=== PATIENT | male | born 1965 | race Caucasian/White ===

== ENCOUNTER 2021-06-27 15:50 | Inpatient (IN) | payer OTHER ==
[~2021-06-27 15:50] MED LIST: Iopamidol 370 76% 100 ML VIAL ONE
[2021-06-27 16:28] LABS: Hemoglobin 14.6 g/dL (13.5-17.5); Mean Corpuscular Hemoglobin 31.2 pg (27.0-33.0); Mean Corpuscular Volume 89.1 fl (81.2-95.1); Mean Platelet Volume 10.1 fl (7.4-10.4); Platelet Count 203 10x3/uL (150-450); RBC Distribution Width 13.2 % (11.5-14.5); Red Blood Cell (RBC) Count 4.68 10x6/uL (4.32-5.72)
[2021-06-27 16:35] LABS: ALT (SGPT) 19 U/L (8-55); AST (SGOT) 30 U/L (5-34); Albumin 3.3 g/dL (3.5-5.0); Alkaline Phosphatase 52 U/L (40-110); Anion Gap 16 mmol/L (10-20); BUN (Urea Nitrogen) 28 mg/dL (8.4-25.7); Bilirubin, Total 0.5 mg/dL (0.2-1.2); Calc. Creatinine Clearance 0 mL/min (70-130); Calcium 8.4 mg/dL (7.8-10.44); Carbon Dioxide 26 mmol/L (22-29); Chloride 86 mmol/L (98-107); Globulin 2.3 g/dL (2.4-3.5); Glucose 96 mg/dL (70-105); Lipase 4 U/L (8-78); Magnesium 1.9 mg/dL (1.6-2.6); Potassium 3.7 mmol/L (3.5-5.1); Protein, Total 5.6 g/dL (6.0-8.3); Sodium 124 mmol/L (136-145)
[2021-06-27] MEDS ORDERED: cefTRIAXone\\ROCEPHIN 2 GM VIAL ONE (16:40)
[2021-06-27] MEDS ORDERED: Azithromycin 500 MG VIAL ONE (16:40)
[2021-06-27 16:58] LABS: CKMB 2.9 ng/mL (0-6.6)
[2021-06-27 17:01] LABS: Eosinophils 1 % (0-10); Lymphocytes 4 % (21-51); Monocytes 5 % (0-10); Myelocyte 1 % (0-0)
[2021-06-27 17:02] LABS: Band 2 % (5-11); MDiff Complete? YES; Neutrophil 87 % (42-75)
[2021-06-27 17:03] LABS: Large Platelets SLIGHT; Platelet Morphology Comment Appears Adequate; RBC Morphology Normal; Vacuoles SLIGHT
[2021-06-27] MEDS ORDERED: Ondansetron PF 4 MG/2 ML Vial ONE (17:28)
[2021-06-27] MEDS ORDERED: Sodium Chloride 0.9% 1,000 ML IV SCH ×2 (18:30→20:15)
[2021-06-27] MEDS ORDERED: cefTRIAXone\\ROCEPHIN 1 GM in Sodium Chloride 0.9% 100 ML IVPB SCH (18:30)
[2021-06-27 18:50] LABS: SARS-CoV-2 NAA Rapid Test Not Detected (NotDetected)
[2021-06-27 19:16] LABS: Anion Gap 14 mmol/L (10-20); BUN (Urea Nitrogen) 26 mg/dL (8.4-25.7); Calc. Creatinine Clearance 0 mL/min (70-130); Calcium 8.4 mg/dL (7.8-10.44); Carbon Dioxide 24 mmol/L (22-29); Chloride 90 mmol/L (98-107); Glucose 84 mg/dL (70-105); Potassium 3.1 mmol/L (3.5-5.1); Sodium 125 mmol/L (136-145)
[2021-06-27 19:26] LABS: Troponin I 0.029 ng/mL (< 0.028)
[2021-06-27] MEDS: Acetaminophen 325 MG TAB PO PRN (20:43)
[2021-06-27] MEDS: Benzonatate 100 MG CAP PO PRN (20:45)
[2021-06-27] MEDS: Potassium Chloride 20 MEQ TAB PO SCH (20:46)
[2021-06-27] MEDS ORDERED: Metoprolol Tartrate 50 MG TAB PO SCH (21:00)
[2021-06-27 23:11] LABS: Troponin I 0.028 ng/mL (< 0.028)
[2021-06-27 23:53] LABS: Strep pneumo Urine Ag NEGATIVE (NEGATIVE)
[2021-06-27 23:54] LABS: Legionella Urinary Ag Negative (Negative)
[2021-06-28] MEDS: Potassium Chloride 20 MEQ TAB PO SCH (00:25)
[2021-06-28] MEDS: Acetaminophen 325 MG TAB PO PRN ×2 (01:09→20:07)
[2021-06-28] MEDS: Benzonatate 100 MG CAP PO PRN (04:48)
[2021-06-28 05:30] LABS: Hemoglobin 13.7 g/dL (13.5-17.5); Mean Corpuscular Hemoglobin 31.8 pg (27.0-33.0); Mean Corpuscular Volume 90.7 fl (81.2-95.1); Mean Platelet Volume 10.2 fl (7.4-10.4); Platelet Count 214 10x3/uL (150-450); RBC Distribution Width 13.6 % (11.5-14.5); Red Blood Cell (RBC) Count 4.31 10x6/uL (4.32-5.72); White Blood Cell (WBC) Count 22.5 10x3/uL (3.5-10.5)
[2021-06-28 05:39] LABS: MDiff Complete? YES; Manual Diff?? YES
[2021-06-28 05:49] LABS: Anion Gap 14 mmol/L (10-20); BUN (Urea Nitrogen) 20 mg/dL (8.4-25.7); Calc. Creatinine Clearance 142 mL/min (70-130); Calcium 8.2 mg/dL (7.8-10.44); Carbon Dioxide 23 mmol/L (22-29); Chloride 97 mmol/L (98-107); Glucose 86 mg/dL (70-105); Sodium 130 mmol/L (136-145)
[2021-06-28 06:00] LABS: Band 17 % (5-11); Lymphocytes 3 % (21-51); Metamyelocyte 1 % (0-0); Monocytes 9 % (0-10); Myelocyte 1 % (0-0); Neutrophil 63 % (42-75); Platelet Morphology Comment Appears Adequate; Reactive Lymphocytes 3 % (0-10)
[2021-06-28 06:01] LABS: Dohle Bodies SLIGHT; Toxic Granulation SLIGHT; Vacuoles SLIGHT
[2021-06-28] MEDS ORDERED: Senokot S 8.6-50 MG TAB PO PRN (07:33)
[2021-06-28] MEDS ORDERED: Artificial Tear Sol 15 ML BOT EA EYE PRN (07:33)
[2021-06-28] MEDS ORDERED: HYDROcodone/Acetaminophen 5/325 mg Tablet PO PRN (07:33)
[2021-06-28] MEDS ORDERED: Ondansetron PF 4 MG/2 ML Vial IVP PRN (07:33)
[2021-06-28] MEDS ORDERED: Cepastat Lozenges 1 LOZ PO PRN (07:33)
[2021-06-28] MEDS ORDERED: Loratadine 10 MG TAB PO PRN (07:33)
[2021-06-28] MEDS ORDERED: hydrALAZINE 20 MG/ML VIAL SLOW IVP PRN (07:33)
[2021-06-28] MEDS ORDERED: Calcium Carbonate 500 MG ChewTAB PO PRN (07:33)
[2021-06-28] MEDS ORDERED: Loperamide HCl 2 MG CAP PO PRN (07:33)
[2021-06-28] MEDS ORDERED: Moisturizing Cream (Eucerin) 113 GM JAR TOP PRN (07:33)
[2021-06-28] MEDS ORDERED: Thyroid 60 MG TAB PO SCH (09:00)
[2021-06-28] MEDS ORDERED: Losartan 25 MG TAB PO SCH (09:00)
[2021-06-28] MEDS ORDERED: Enoxaparin Sodium 40 MG/0.4 ML SYRINGE SC SCH (09:00)
[2021-06-28] MEDS: Metoprolol Tartrate 50 MG TAB PO SCH ×2 (09:26→20:07)
[2021-06-28] MEDS: GUAIFENESIN SF SOLN 200 MG/10 ML UDCUP PO PRN ×2 (14:55→20:07)
[2021-06-28] MEDS: Azithromycin 500 MG in Sodium Chloride 0.9% 250 ML 250 ML IVPB SCH (18:34)
[2021-06-28] MEDS ORDERED: GUAIFENESIN SF SOLN 200 MG/10 ML UDCUP ONE (19:56)
[2021-06-28] MEDS: cefTRIAXone\\ROCEPHIN 1 GM in Sodium Chloride 0.9% 100 ML IVPB SCH (20:08)
[2021-06-28] MEDS ORDERED: Melatonin 3 MG TAB PO PRN (21:00)
[2021-06-29 04:38] LABS: Hemoglobin 10.7 g/dL (13.5-17.5); MDiff Complete? YES; Manual Diff?? YES; Mean Corpuscular HGB CONC 35.1 g/dL (32.0-36.0); Mean Corpuscular Volume 91.3 fl (81.2-95.1); Mean Platelet Volume 10.1 fl (7.4-10.4); Platelet Count 197 10x3/uL (150-450); RBC Distribution Width 14.1 % (11.5-14.5); Red Blood Cell (RBC) Count 3.34 10x6/uL (4.32-5.72); White Blood Cell (WBC) Count 18.1 10x3/uL (3.5-10.5)
[2021-06-29] MEDS ORDERED: Pantoprazole 40 MG VIAL IVP SCH ×2 (05:00→18:00)
[2021-06-29] MEDS ORDERED: Lactated Ringer's 1,000 ML IV SCH (05:00)
[2021-06-29 05:04] LABS: ALT (SGPT) 34 U/L (8-55); AST (SGOT) 38 U/L (5-34); Albumin 2.6 g/dL (3.5-5.0); Alkaline Phosphatase 39 U/L (40-110); Bilirubin, Direct 0.2 mg/dL (0.1-0.3); Bilirubin, Total 0.4 mg/dL (0.2-1.2); CRP (Inflammatory) 10.13 mg/dL (= or < 0.5); Phosphorus 2.3 mg/dL (2.3-4.7); Protein, Total 4.7 g/dL (6.0-8.3)
[2021-06-29 05:07] LABS: Anion Gap 12 mmol/L (10-20); BUN (Urea Nitrogen) 15 mg/dL (8.4-25.7); Calc. Creatinine Clearance 156 mL/min (70-130); Calcium 8.1 mg/dL (7.8-10.44); Carbon Dioxide 26 mmol/L (22-29); Chloride 98 mmol/L (98-107); Glucose 98 mg/dL (70-105); Magnesium 1.9 mg/dL (1.6-2.6); Potassium 3.9 mmol/L (3.5-5.1); Sodium 132 mmol/L (136-145)
[2021-06-29 05:10] LABS: Band 5 % (5-11); Eosinophils 2 % (0-10); Lymphocytes 6 % (21-51); Metamyelocyte 4 % (0-0); Monocytes 12 % (0-10); Myelocyte 4 % (0-0); Neutrophil 62 % (42-75); Reactive Lymphocytes 4 % (0-10)
[2021-06-29 05:11] LABS: Platelet Morphology Comment Appears Adequate
[2021-06-29 05:13] LABS: Anisocytosis SLIGHT = 6-15 cells (100X) (0-5/hpf); Toxic Granulation SLIGHT; Vacuoles SLIGHT
[2021-06-29] MEDS ORDERED: Potassium Chloride 20 MEQ in Premix Bag 1 BAG IVPB SCH ×2 (05:30→06:30)
[2021-06-29 06:00] LABS: PTT 30.8 sec (22.0-33.0); Prothrombin Time 10.9 sec (9.5-12.1)
[2021-06-29] MEDS: Pantoprazole 80 MG, Admixture Fee 1 EACH in Sodium Chloride 0.9% 100 ML IVPB SCH ×2 (06:11→14:45)
[2021-06-29] MEDS: Lactated Ringer's 1,000 ML IV SCH ×3 (07:34→20:30)
[2021-06-29 08:06] LABS: Hemoglobin 8.2 g/dL (13.5-17.5); Platelet Count 162 10x3/uL (150-450)
[2021-06-29] MEDS ORDERED: Lidocaine 1% PF 5 ML VIAL ONE (10:22)
[2021-06-29] MEDS ORDERED: Midazolam HCl 2 mg/2 ml Vial ONE (10:22)
[2021-06-29] MEDS ORDERED: Dexamethasone 4 mg/ml Vial ONE (10:22)
[2021-06-29] MEDS ORDERED: Ondansetron PF 4 MG/2 ML Vial ONE (10:22)
[2021-06-29] MEDS ORDERED: Succinylcholine 200 MG/10 ml SYRINGE FS ONE (10:23)
[2021-06-29] MEDS ORDERED: Ketamine 50 MG/ML (10ML VIAL) ONE (10:39)
[2021-06-29] MEDS ORDERED: HYDROmorphone 0.5 MG/0.5 ML SYRINGE SLOW IVP SCH (10:45)
[2021-06-29] MEDS ORDERED: PHENYLEPHRINE-NS 100 MCG/ML 10 ML SYRINGE ONE ×2 (12:10→12:20)
[2021-06-29] MEDS ORDERED: EPINEPHrine 1 MG/10 ML Abboject SYRINGE ONE (12:14)
[2021-06-29] MEDS ORDERED: Iopamidol 300 61% 100 ML VIAL FS ONE (12:21)
[2021-06-29] MEDS ORDERED: Rocuronium Bromide 10 MG/ML (10ML VIAL) ONE (12:24)
[2021-06-29] MEDS ORDERED: SUGAMMADEX SODIUM 200 MG/2 ML VIAL ONE (12:32)
[2021-06-29] MEDS: Azithromycin 500 MG in Sodium Chloride 0.9% 250 ML 250 ML IVPB SCH (16:23)
[2021-06-29 18:09] LABS: Hemoglobin 8.2 g/dL (13.5-17.5)
[2021-06-29] MEDS: cefTRIAXone\\ROCEPHIN 1 GM in Sodium Chloride 0.9% 100 ML IVPB SCH (20:30)
[2021-06-29] MEDS ORDERED: Labetalol HCl 100 MG/20 ML VIAL SLOW IVP PRN (20:54)
[2021-06-29] MEDS: Metoprolol Tartrate 25 MG TAB PO SCH (21:21)
[2021-06-29] MEDS ORDERED: Guaifenesin DM 100-10/5 ML UDCUP PO PRN (22:29)
[2021-06-29] MEDS ORDERED: diphenhydrAMINE 12.5 MG/5 ML UDCUP PO SCH (22:30)
[2021-06-30] MEDS: Pantoprazole 80 MG, Admixture Fee 1 EACH in Sodium Chloride 0.9% 100 ML IVPB SCH (01:18)
[2021-06-30] MEDS: Lactated Ringer's 1,000 ML IV SCH ×2 (01:18→09:23)
[2021-06-30] MEDS: Metoprolol Tartrate 25 MG TAB PO SCH ×2 (02:48→07:57)
[2021-06-30 03:27] LABS: Hemoglobin 7.5 g/dL (13.5-17.5); Mean Corpuscular HGB CONC 34.1 g/dL (32.0-36.0); Mean Corpuscular Hemoglobin 31.9 pg (27.0-33.0); Mean Corpuscular Volume 93.6 fl (81.2-95.1); Mean Platelet Volume 10.3 fl (7.4-10.4); Platelet Count 181 10x3/uL (150-450); RBC Distribution Width 14.8 % (11.5-14.5); Red Blood Cell (RBC) Count 2.35 10x6/uL (4.32-5.72); White Blood Cell (WBC) Count 18.7 10x3/uL (3.5-10.5)
[2021-06-30 03:28] LABS: MDiff Complete? YES; Manual Diff?? YES
[2021-06-30 03:49] LABS: ALT (SGPT) 27 U/L (8-55); AST (SGOT) 26 U/L (5-34); Albumin 2.3 g/dL (3.5-5.0); Alkaline Phosphatase 25 U/L (40-110); Anion Gap 12 mmol/L (10-20); BUN (Urea Nitrogen) 13 mg/dL (8.4-25.7); Bilirubin, Total 0.3 mg/dL (0.2-1.2); Calc. Creatinine Clearance 154 mL/min (70-130); Calcium 7.4 mg/dL (7.8-10.44); Carbon Dioxide 25 mmol/L (22-29); Chloride 102 mmol/L (98-107); Globulin 1.7 g/dL (2.4-3.5); Glucose 119 mg/dL (70-105); Sodium 135 mmol/L (136-145)
[2021-06-30 03:55] LABS: Band 8 % (5-11); Lymphocytes 12 % (21-51); Metamyelocyte 7 % (0-0); Monocytes 9 % (0-10); Myelocyte 4 % (0-0); Neutrophil 58 % (42-75)
[2021-06-30 03:56] LABS: Platelet Morphology Comment Appears Adequate
[2021-06-30 03:57] LABS: Anisocytosis SLIGHT = 6-15 cells (100X) (0-5/hpf); Dohle Bodies SLIGHT; Toxic Granulation SLIGHT; Vacuoles SLIGHT
[2021-06-30 03:58] LABS: Hypochromia SLIGHT = 6-15 cells (100X) (0-5/hpf); Macrocytosis SLIGHT = 6-15 cells (100X) (0-5/hpf); Microcytosis SLIGHT = 6-15 cells (100X) (0-5/hpf); Polychromasia SLIGHT = 2-3 cells (100X) (0-2/hpf)
[2021-06-30] MEDS: metroNIDAZOLE 500 MG TAB PO SCH ×3 (08:01→21:21)
[2021-06-30] MEDS ORDERED: HYDROcodone/Acetaminophen 5/325 mg Tablet PO PRN (10:30)
[2021-06-30] MEDS ORDERED: Calcium Carbonate 500 MG ChewTAB PO PRN (10:30)
[2021-06-30] MEDS ORDERED: Ondansetron PF 4 MG/2 ML Vial IVP PRN (10:30)
[2021-06-30] MEDS ORDERED: Senokot S 8.6-50 MG TAB PO PRN (10:30)
[2021-06-30] MEDS ORDERED: Zolpidem Tartrate 5 MG TAB PO PRN (10:30)
[2021-06-30] MEDS ORDERED: Cepastat Lozenges 1 LOZ PO PRN (10:30)
[2021-06-30] MEDS ORDERED: Loperamide HCl 2 MG CAP PO PRN (10:30)
[2021-06-30] MEDS ORDERED: Loratadine 10 MG TAB PO PRN (10:30)
[2021-06-30] MEDS ORDERED: Acetaminophen 325 MG TAB PO PRN (10:35)
[2021-06-30] MEDS ORDERED: guaiFENesin 100 MG/5 ML UDCUP PO PRN (10:38)
[2021-06-30] MEDS ORDERED: Metoprolol Tartrate 25 MG TAB PO SCH ×2 (11:45→15:00)
[2021-06-30] MEDS: Azithromycin 500 MG in Sodium Chloride 0.9% 250 ML 250 ML IVPB SCH (17:28)
[2021-06-30] MEDS: Metoprolol Tartrate 50 MG TAB PO SCH (21:20)
[2021-06-30] MEDS: cefTRIAXone\\ROCEPHIN 1 GM in Sodium Chloride 0.9% 100 ML IVPB SCH (21:22)
[2021-06-30] MEDS: Pantoprazole 40 MG VIAL IVP SCH (21:22)
[2021-07-01 03:48] LABS: Mean Corpuscular HGB CONC 34.6 g/dL (32.0-36.0); Mean Corpuscular Hemoglobin 31.7 pg (27.0-33.0); Mean Corpuscular Volume 91.7 fl (81.2-95.1); Mean Platelet Volume 9.8 fl (7.4-10.4); Platelet Count 276 10x3/uL (150-450); RBC Distribution Width 14.5 % (11.5-14.5); Red Blood Cell (RBC) Count 2.52 10x6/uL (4.32-5.72); White Blood Cell (WBC) Count 20.4 10x3/uL (3.5-10.5)
[2021-07-01 04:00] VITALS: TEMP 97.5
[2021-07-01 04:02] LABS: MDiff Complete? YES; Manual Diff?? YES
[2021-07-01 04:26] LABS: Band 9 % (5-11); Eosinophils 4 % (0-10); Lymphocytes 15 % (21-51); Metamyelocyte 14 % (0-0); Monocytes 12 % (0-10); Myelocyte 2 % (0-0); Neutrophil 38 % (42-75); Nucleated RBC 3 % (0); Reactive Lymphocytes 1 % (0-10)
[2021-07-01 04:27] LABS: Anisocytosis SLIGHT = 6-15 cells (100X) (0-5/hpf); Hypochromia SLIGHT = 6-15 cells (100X) (0-5/hpf); Macrocytosis SLIGHT = 6-15 cells (100X) (0-5/hpf); Microcytosis SLIGHT = 6-15 cells (100X) (0-5/hpf); Platelet Morphology Comment Appears Adequate; Polychromasia SLIGHT = 2-3 cells (100X) (0-2/hpf)
[2021-07-01 04:50] LABS: Anion Gap 13 mmol/L (10-20); BUN (Urea Nitrogen) 6 mg/dL (8.4-25.7); Calc. Creatinine Clearance 163 mL/min (70-130); Calcium 7.7 mg/dL (7.8-10.44); Carbon Dioxide 26 mmol/L (22-29); Chloride 101 mmol/L (98-107); Glucose 86 mg/dL (70-105); Magnesium 1.8 mg/dL (1.6-2.6); Phosphorus 2.8 mg/dL (2.3-4.7); Potassium 3.6 mmol/L (3.5-5.1); Sodium 136 mmol/L (136-145)
[2021-07-01 04:59] VITALS: BMI 33.4
[2021-07-01] MEDS: Metoprolol Tartrate 50 MG TAB PO SCH (08:50)
[2021-07-01] MEDS: Pantoprazole 40 MG VIAL IVP SCH (08:50)
[2021-07-01] MEDS: metroNIDAZOLE 500 MG TAB PO SCH (08:51)
[2021-07-01 09:44] VITALS: BP 175/103
[2021-07-01] MEDS ORDERED: hydrALAZINE 20 MG/ML VIAL SLOW IVP PRN (09:50)
== END 2021-07-01 10:20 | disposition home or self-care (01) | DRG 871 ==
LOC: CSHERS 15:50 → CSHTELE 18:17 → CSHIMCU 06-29 05:16
PROVIDERS: ADMIT Student in an Organized Health Care Education/Training Program; ATTEND Internal Medicine
PROC: 3E03329 Introduction of Other Anti-infective into Peripheral Vein, Percutaneous Approach (ICD-10-PCS; 2021-06-27)
PROC: 0W3P8ZZ Control Bleeding in Gastrointestinal Tract, Via Natural or Artificial Opening Endoscopic (ICD-10-PCS; principal; 2021-06-29)
PROC: 0DB68ZX Excision of Stomach, Via Natural or Artificial Opening Endoscopic, Diagnostic (ICD-10-PCS; 2021-06-29)
PROC: 30233N1 Transfusion of Nonautologous Red Blood Cells into Peripheral Vein, Percutaneous Approach (ICD-10-PCS; 2021-06-29)
DX: A41.9 Sepsis, unspecified organism (principal); J96.01 Acute respiratory failure with hypoxia; I21.A1 Myocardial infarction type 2; K26.4 Chronic or unspecified duodenal ulcer with hemorrhage; J69.0 Pneumonitis due to inhalation of food and vomit; E87.1 Hypo-osmolality and hyponatremia; D62 Acute posthemorrhagic anemia; I10 Essential (primary) hypertension; E87.6 Hypokalemia; E03.9 Hypothyroidism, unspecified; G89.29 Other chronic pain; Z20.822 Contact with and (suspected) exposure to COVID-19; K25.9 Gastric ulcer, unspecified as acute or chronic, without hemorrhage or perforation; Z79.899 Other long term (current) drug therapy; Z87.891 Personal history of nicotine dependence
CPT/HCPCS: 36415; 36430; 71045; 71275; 74177; 80048; 80053; 80076; 82274; 82553; 83605; 83690; 83735; 83930; 84100; 84300; 84484; 85025; 85060; 85610; 85730; 86140; 86850; 86900; 86901; 87040; 87070; 87205; 87449; 87804; 87899; 88305; 93005; 93306; 94760; 96365; 96367; 96374; C9113; J0171; J0360; J0456; J0696; J1100; J2250; J2405; J3480; J3490; J7050; J7120; P9016; Q0163; Q9967; U0002